=== PATIENT | female | born 1995 | race African-American/Black ===

== ENCOUNTER 2017-11-04 03:40 | Emergency (ER) | payer OTHER ==
[~2017-11-04] VITALS: Ht 165.1 cm; Wt 61.0 kg
[~2017-11-04 03:40] MED LIST: AMOX500C2 PO; HYDR-762 PO; IBUP-1542 PO; NITR-58 PO; ONDA4TAB8 PO; OXYC-281 PO; PROM25TA14 PO; UDROBDM PO
[2017-11-04 03:42] VITALS: Ht 165.1 cm; Wt 61.0 kg
[2017-11-04] MEDS ORDERED: HYDROmorphONE 1 MG/ML SYG IV STA (04:01)
[2017-11-04] MEDS ORDERED: SOD CHLORIDE 0.9% 1,000 ML IV STA (04:01)
[2017-11-04 04:28] LABS: BASOPHILS % 0.1 % (0.0-2.0); EOSINOPHILS % 0.3 % (0.0-7.0); HEMATOCRIT 33.5 % (37.0-47.0); HEMOGLOBIN 10.7 g/dl (12.0-16.0); LYMPHOCYTES # 2.1 10^3/ul (0.8-2.9); LYMPHOCYTES % 14.4 % (15.0-51.0); MEAN CORPUSCULAR HEMOGLOBIN 25.1 pg (29.0-33.0); MEAN CORPUSCULAR HGB CONC 31.9 g/dl (32.0-37.0); MEAN CORPUSCULAR VOLUME 78.5 fl (82.0-101.0); MONOCYTES % 7.1 % (0.0-11.0); NEUTROPHILS % 77.5 % (39.0-77.0); PLATELET COUNT 214 10^3/UL (140-415); RED BLOOD COUNT 4.27 10^6/ul (4.20-5.40); WHITE BLOOD COUNT 14.2 10^3/ul (4.8-10.8)
[2017-11-04 04:38] LABS: ADD UMIC NO; UR ASCORBIC ACID NEGATIVE (NEGATIVE); UR BILIRUBIN (Dip) NEGATIVE (NEGATIVE); UR BLOOD (Dip) NEGATIVE (NEGATIVE); UR CLARITY SLIGHTLY CLOUDY (CLEAR); UR COLOR STRAW (YELLOW); UR GLUCOSE (Dip) NEGATIVE (NEGATIVE); UR KETONES (Dip) NEGATIVE (NEGATIVE); UR LEUKOCYTE ESTERASE (Dip) NEGATIVE Leu/ul (NEGATIVE); UR NITRITE (Dip) NEGATIVE (NEGATIVE); UR RBC 0 /HPF (0-5); UR SPECIFIC GRAVITY (Dip) 1.004 (1.003-1.030); UR SQUAMOUS EPITHELIAL CELL MANY /HPF (FEW); UR TOTAL PROTEIN (Dip) NEGATIVE (NEGATIVE); UR UROBILINOGEN (Dip) NEGATIVE (NEGATIVE)
--- NOTE | 2017-11-04 04:45 | ERD ---
ER Documentation Chief Complaint Chief Complaint BIBRA 881 c/o abd pain. States had ectopic surgery done @ [facility] on 11/02 HPI 22-year-old female Ab2 brought in by ambulance for severe abdominal pain. Patient states that her last period was about 4 weeks ago. Yesterday she started having left lower quadrant abdominal pain. She went to [facility] where she had an ultrasound done that showed a possible ectopic with no intrauterine . She had a diagnostic laparoscopy done that did not show any evidence of ectopic. She was discharged home with follow-up instructions. She was doing well after discharge, then started having lower severe progressive abdominal pain without associated symptoms. Denies vaginal bleeding or discharge. ROS All systems reviewed and are negative except as per history of present illness. Medications Home Meds Active Scripts Polyethylene Glycol* (Miralax*) 17 Gm Powd.pack, 17 GM PO DAILY, #7 Prov:SHREYA SHIELDS MD 11/04/17 Hydrocodone/Acetaminophen (Buckner 5-325 Tablet) 1 Each Tablet, 1 TAB PO Q6H Y for PAIN, #7 TAB Prov:SHREYA SHIELDS MD 11/04/17 Nitrofurantoin Monohyd Macrocr* (Macrobid*) 100 Mg Capsr, 100 MG PO BID for 7 Days, CAP Prov:FELISHA HEDRICK PA-C 04/30/16 Guaifenesin-Dextromethorphan* (Robitussin* DM) 100MG/10MG/5ML Syrup, 10 ML PO Q6H Y for COUGH for 5 Days, ML Prov:SANDY FOOTE PA-C 04/16/16 Ibuprofen* (Motrin*) 600 Mg Tab, 600 MG PO Q6, #20 TAB Prov:SANDY FOOTE PA-C 04/16/16 Amoxicillin* (Amoxicillin*) 500 Mg Cap, 500 MG PO TID for 10 Days, CAP Prov:SANDY FOOTE PA-C 04/16/16 Promethazine Hcl* (Phenergan*) 25 Mg Tablet, 25 MG PO Q6 Y for NAUSEA AND/OR VOMITING, #10 TAB Prov:ANNA SCHAEFER MD 02/08/16 Hydrocodone Bit-Acetaminophen* (Buckner*) 10-325 Mg Tablet, 1 TAB PO Q8 Y for PAIN , #10 TAB Prov:ANNA SCHAEFER MD 02/08/16 Ondansetron Hcl* (Zofran*) 4 Mg Tablet, 4 MG PO Q6H for NAUSEA AND/OR VOMITING, #30 TAB Prov:IVAN GARCÍA MD 07/18/15 Oxycodone Hcl-Acetaminophen* (Percocet*) 5-325 Mg Tablet, 1 TAB PO Q4H Y for PAIN LEVEL 6-10, #12 TAB Prov:IVAN GARCÍA MD 07/18/15 Allergies Allergies: Coded Allergies: No Known Allergy (Verified , 06/12/15) PMhx/Soc History of Surgery: Yes (LAPROSCOPIC ECTOPIC?) Anesthesia Reaction: No Hx Neurological Disorder: No Hx Respiratory Disorders: No Hx Cardiac Disorders: No Hx Psychiatric Problems: No Hx Miscellaneous Medical Probl: No Hx Alcohol Use: No Hx Substance Use: Yes (MARIJUANA) Hx Tobacco Use: Yes Smoking Status: Current every day smoker FmHx Family History: No diabetes Physical Exam Vitals Vital Signs Date Time Temp Pulse Resp B/P Pulse Ox O2 Delivery O2 Flow Rate FiO2 11/04/17 05:30 73 18 94/43 100 Room Air 11/04/17 03:42 97.8 114 24 143/79 97 Physical Exam Const: [] Head: Atraumatic Eyes: Normal Conjunctiva ENT: Normal External Ears, Nose and Mouth. Neck: Full range of motion..~ No meningismus. Resp: Clear to auscultation bilaterally Cardio: Regular rate and rhythm, no murmurs Abd: Soft, non tender, non distended. Normal bowel sounds Skin: No petechiae or rashes Back: No midline or flank tenderness Ext: No cyanosis, or edema Neur: Awake and alert Psych: Normal Mood and Affect Result Diagram: 11/04/1741111/04/17411 Results 24 hrs Laboratory Tests Test 11/04/17 04:12 White Blood Count 14.210^3/ul Red Blood Count 4.2710^6/ul Hemoglobin 10.7g/dl Hematocrit 33.5% Mean Corpuscular Volume 78.5fl Mean Corpuscular Hemoglobin 25.1pg Mean Corpuscular Hemoglobin Concent 31.9g/dl Red Cell Distribution Width 16.0% Platelet Count 90285^3/UL Mean Platelet Volume 11.0fl Neutrophils % 77.5% Lymphocytes % 14.4% Monocytes % 7.1% Eosinophils % 0.3% Basophils % 0.1% Nucleated Red Blood Cells % 0.0/100WBC Neutrophils # 11.010^3/ul Lymphocytes # 2.110^3/ul Monocytes # 1.010^3/ul Eosinophils # 0.010^3/ul Basophils # 0.010^3/ul Nucleated Red Blood Cells # 0.010^3/ul Urine Color STRAW Urine Clarity SLIGHTLY CLOUDY Urine pH 7.0 Urine Specific [place] 1.004 Urine Ketones NEGATIVEmg/dL Urine Nitrite NEGATIVEmg/dL Urine Bilirubin NEGATIVEmg/dL Urine Urobilinogen NEGATIVEmg/dL Urine Leukocyte Esterase NEGATIVELeu/ul Urine Microscopic RBC 0/HPF Urine Microscopic WBC 1/HPF Urine Squamous Epithelial Cells MANY/HPF Urine Hemoglobin NEGATIVEmg/dL Urine Glucose NEGATIVEmg/dL Urine Total Protein NEGATIVEmg/dl Sodium Level 139mmol/L Potassium Level 3.3mmol/L Chloride Level 103mmol/L Carbon Dioxide Level 25mmol/L Anion Gap 14 Blood Urea Nitrogen 7mg/dl Creatinine 0.80mg/dl Glucose Level 109mg/dl Calcium Level 9.3mg/dl Total Bilirubin 0.1mg/dl Direct Bilirubin 0.00mg/dl Indirect Bilirubin 0.1mg/dl Aspartate Amino Transf (AST/SGOT) 24IU/L Alanine Aminotransferase (ALT/SGPT) 31IU/L Alkaline Phosphatase 59IU/L Total Protein 6.9g/dl Albumin 4.0g/dl Globulin 2.90g/dl Albumin/Globulin Ratio 1.37 Beta HCG, Quantitative 2475.6mIU/ml Current Medications Medications (Trade) Dose Ordered Sig/Tian Route PRN Reason Start Time Stop Time Status Last Admin Dose Admin Sodium Chloride (NS) 1,000 ml @ 1,000 mls/hr Q1H STAT IV 11/04/17 04:01 11/04/17 05:00 DC 11/04/17 04:08 Hydromorphone HCl (Dilaudid) 1 mg ONCE STAT IV 11/04/17 04:01 11/04/17 04:03 DC 11/04/17 04:08 Procedures/MDM Labs: CBC: leukocytosis, mild anemia. BMP: mild hypokalemia B-Hc US Pelvic: FINDINGS: The uterus is visualized and measures 7.6 x 5.8 x 6.9 cm. There is a single intrauterine gestation. The mean sac diameter is 0.46 cm. This yields an estimated gestational age of 5 weeks and 0 days. The estimated date of delivery is July 07, 2018. There is no evidence for a yolk sac or pole. There is mild free fluid within the anterior cul-de-sac and left adnexal regions. The right ovary has a normal echotexture and measures 3.2 x 2.2 x 1.9 cm. The left ovary has a normal echotexture and measures 3.6 x 2.4 x 3.5 cm. There is a left corpus luteal cyst present measuring 2.5 x 2.0 x 2.4 cm with complex features and septations noted. There is normal flow to the ovaries bilaterally. No adnexal masses are noted. IMPRESSION: 1. Single early intrauterine gestation of approximately 5 weeks 0 days without evidence for a pole. Clinical correlation and follow-up ultrasound is indicated. 2. Left ovarian probable hemorrhagic corpus luteal cyst. 3. Mild pelvic and left adnexal free fluid. .Harmeet Mary MD, MD Date Time Electronically viewed and signed by .Harmeet Mary MD, MD on 11/04/2017 05:08 MDM: Patient presenting with abdominal pain and stable vitals. Doubt perforated viscus, acute appendicitis, diverticulitis or ureterolithiasis. No evidence of definite ectopic, ovarian torsion, or TOA. US shows hemorrhagic ovarian cyst on left with evidence of early IUP, reportedly not seen on US yesterday at outside hospital. She was treated with IV fluids and analgesics with improvement of symptoms. Spoke with Dr. [facility], who recommended followup for repeat hcg level in 4 days with repeat US in 1 week. Patient requesting , but I told her this cannot be done in ED. Outpatient resources discussed. OB referral given. Return precautions discussed and given Rx for Buckner. Departure Diagnosis: Primary Impression: Pelvic pain Additional Impressions: Early stage of Complex cyst of left ovary Condition: Stable SHREYA SHIELDS MD Nov 04, 2017 04:45
[2017-11-04 05:04] LABS: ALBUMIN/GLOBULIN RATIO 1.37; BILIRUBIN,INDIRECT 0.1 mg/dl (0-1.1); BILIRUBIN,TOTAL 0.1 mg/dl (0.2-1.3); CALCIUM 9.3 mg/dl (8.4-10.2); CREATININE 0.8 mg/dl (0.44-1.00); POTASSIUM 3.3 mmol/L (3.5-5.1); TOTAL PROTEIN 6.9 g/dl (6.1-8.1)
--- NOTE | 2017-11-04 05:08 | RADRPT ---
PROCEDURE: ULTRASOUND OBSTETRICAL CLINICAL INDICATION: 22-year-old female with pelvic pain. TECHNIQUE: Multiple sonographic images of the pelvis were obtained. The images were reviewed on a PACS workstation. COMPARISON: None. FINDINGS: The uterus is visualized and measures 7.6 x 5.8 x 6.9 cm. There is a single intrauterine gestation. The mean sac diameter is 0.46 cm. This yields an estimated gestational age of 5 weeks and 0 days. The estimated date of delivery is July 07, 2018. There is no evidence for a yolk sac or pole . There is mild free fluid within the anterior cul-de-sac and left adnexal regions. The right ovary has a normal echotexture and measures 3.2 x 2.2 x 1.9 cm. The left ovary has a normal echotexture an d measures 3.6 x 2.4 x 3.5 cm. There is a left corpus luteal cyst present measuring 2.5 x 2.0 x 2.4 cm with complex features and septations noted. There is normal flow to the ovaries bilaterally. No adnexal masses are noted. IMPRESSION: 1. Single early intrauterine gestation of approximately 5 weeks 0 days without evidence for a pole. Clinical correlation and follow-up ultrasound is indicated. 2. Left ovarian probable hemorrhagic corpus luteal cyst. 3. Mild pelvic and left adnexal free fluid. .Harmeet Mary MD, MD Date Time Electronically viewed and signed by .Harmeet Mayr MD, on 11/04/2017 05:08 .Niels/
[2017-11-04 05:30] VITALS: BP 94/43; PULSE 73; RESP 18
[2017-11-04] MEDS ORDERED: HYDR-906 PO (06:02)
[2017-11-04] MEDS ORDERED: POLY17PO6 PO (06:02)
== END 2017-11-04 06:36 | disposition home or self-care (01) ==
LOC: E/R 03:40
DX: O34.81 Maternal care for other abnormalities of pelvic organs, first trimester (principal); N83.202 Unspecified ovarian cyst, left side; O99.331 Smoking (tobacco) complicating pregnancy, first trimester; F17.210 Nicotine dependence, cigarettes, uncomplicated; R10.2 Pelvic and perineal pain; Z3A.01 Less than 8 weeks gestation of pregnancy
CPT/HCPCS: 36415; 76801; 76817; 80053; 81001; 81003; 84702; 85025; 86900; 86901; 96374; J1170; J7030; Z7502

== ENCOUNTER 2017-11-04 11:04 | Emergency (ER) | payer OTHER ==
[~2017-11-04] VITALS: Ht 157.5 cm; Wt 68.0 kg
[~2017-11-04 11:04] MED LIST changes: +HYDR-906 PO; +POLY17PO6 PO
[2017-11-04 11:07] VITALS: Ht 157.5 cm; Wt 68.0 kg
[2017-11-04] MEDS ORDERED: ONDANSETRON 4 MG INJ IV STA (12:06)
[2017-11-04] MEDS ORDERED: FAMOTIDINE 20 MG INJ IV STA (12:06)
[2017-11-04] MEDS ORDERED: HYDROmorphONE 1 MG/ML SYG IV STA (12:06)
--- NOTE | 2017-11-04 13:18 | ERD ---
ER Documentation Chief Complaint Chief Complaint Complains of abdominal pain x 3 days HPI 22-year-old female, Ab2, last menstrual period approximately 4 weeks ago with a history of chronic abdominal pain, hiatal hernia, now with a documented, viable 5 week intrauterine who is 2 days status post laparoscopic evaluation, ruled out for ectopic at [facility] presents to the ED complaining of severe, generalized abdominal pain. Nausea but no vomiting or diarrhea. Denies dysuria, polyuria or flank pain. No URI symptoms or cough. No chest pain, palpitations, leg pain or swelling. No relieving or exacerbating factors. No fevers or chills. ROS All systems reviewed and are negative except as per history of present illness. Medications Home Meds Active Scripts Polyethylene Glycol* (Miralax*) 17 Gm Powd.pack, 17 GM PO DAILY, #7 Prov:SHREYA SHIELDS MD 11/04/17 Hydrocodone/Acetaminophen ([place] 5-325 Tablet) 1 Each Tablet, 1 TAB PO Q6H Y for PAIN, #7 TAB Prov:SHREYA SHIELDS MD 11/04/17 Nitrofurantoin Monohyd Macrocr* (Macrobid*) 100 Mg Capsr, 100 MG PO BID for 7 Days, CAP Prov:FELISHA HEDRICK PA-C 04/30/16 Guaifenesin-Dextromethorphan* (Robitussin* DM) 100MG/10MG/5ML Syrup, 10 ML PO Q6H Y for COUGH for 5 Days, ML Prov:SANDY FOOTE PA-C 04/16/16 Ibuprofen* (Motrin*) 600 Mg Tab, 600 MG PO Q6, #20 TAB Prov:SANDY FOOTE PA-C 04/16/16 Amoxicillin* (Amoxicillin*) 500 Mg Cap, 500 MG PO TID for 10 Days, CAP Prov:SANDY FOOTE PA-C 04/16/16 Promethazine Hcl* (Phenergan*) 25 Mg Tablet, 25 MG PO Q6 Y for NAUSEA AND/OR VOMITING, #10 TAB Prov:ANNA SCHAEFER MD 02/08/16 Hydrocodone Bit-Acetaminophen* ([place]*) 10-325 Mg Tablet, 1 TAB PO Q8 Y for PAIN , #10 TAB Prov:ANNA SCHAEFER MD 02/08/16 Ondansetron Hcl* (Zofran*) 4 Mg Tablet, 4 MG PO Q6H for NAUSEA AND/OR VOMITING, #30 TAB Prov:IVAN GARCÍA MD 07/18/15 Oxycodone Hcl-Acetaminophen* (Percocet*) 5-325 Mg Tablet, 1 TAB PO Q4H Y for PAIN LEVEL 6-10, #12 TAB Prov:IVAN GARCÍA MD 07/18/15 Allergies Allergies: Coded Allergies: No Known Allergy (Verified , 06/12/15) PMhx/Soc reviewed in chart. As per HPI History of Surgery: Yes ("Fallopian tube sx") Anesthesia Reaction: No Hx Neurological Disorder: No Hx Respiratory Disorders: No Hx Cardiac Disorders: No Hx Psychiatric Problems: No Hx Miscellaneous Medical Probl: Yes (Per significant other: Cysts in uterus, Hiatal hernia) Hx Alcohol Use: No Hx Substance Use: No Hx Tobacco Use: Yes Smoking Status: Never smoker FmHx No family history relevant to presenting complaint Physical Exam Vitals Vital Signs Date Time Temp Pulse Resp B/P Pulse Ox O2 Delivery O2 Flow Rate FiO2 11/04/17 11:07 98.0 96 20 112/78 99 Physical Exam Const: Alert, moderate to severe distress due to pain Head: Atraumatic Eyes: Normal Conjunctiva ENT: Normal External Ears, Nose and Mouth. Neck: Full range of motion. No meningismus. Resp: Clear to auscultation bilaterally Cardio: Regular rate and rhythm, no murmurs Abd: Soft, non tender, non distended. Normal bowel sounds Skin: No petechiae or rashes Back: No midline or flank tenderness Ext: No cyanosis, or edema Neur: Awake and alert Psych: Normal Mood and Affect Results 24 hrs Current Medications Medications (Trade) Dose Ordered Sig/Tian Route PRN Reason Start Time Stop Time Status Last Admin Dose Admin Hydromorphone HCl (Dilaudid) 1 mg ONCE STAT IV 11/04/17 12:06 11/04/17 12:09 DC 11/04/17 12:14 Ondansetron HCl (Zofran Inj) 4 mg ONCE STAT IV 11/04/17 12:06 11/04/17 12:09 DC 11/04/17 12:14 Famotidine (Pepcid Iv) 20 mg ONCE STAT IV 11/04/17 12:06 11/04/17 12:09 DC 11/04/17 12:14 Procedures/MDM DOCUMENTS REVIEWED: ED nurse, prior ED, prior records. Extensive h/o chronic pain, opioid dependence and drug seeking behavior. ED COURSE: Dilaudid 1 mg, Zofran 4 mg IV REEXAMINATION/REEVALUATION: Time:13:15. Well. Pain resolved. MEDICAL DECISION MAKIN-year-old female with a history of chronic abdominal pain, hiatal hernia, now with a documented, viable 5 week intrauterine who is status post laparoscopic evaluation to rule out ectopic 2 days ago at [facility] presents to the ED complaining of severe, generalized abdominal pain. No relieving or exacerbating factors. She is pending termination of tomorrow morning. Pain relieved with intravenous hydration, analgesics and antiemetics. During the patient's recent , extensive workup is no evidence of acute intra-abdominal process including but not limited to perforated viscus, appendicitis, diverticulitis, cholecystitis or bowel obstruction. Abdominal exam reveals no evidence of rebound, guarding or signs of acute peritonitis. Medical records reviewed and patient has a long history of chronic pain and opioid dependence. She recently received prescription for Percocet and Helena. Despite her insistence, it would be inappropriate to prescribe more opiates. Stable for discharge of precautionary instructions and outpatient follow-up as counseled. Referral to pain management advised. Counseled patient and family regarding diagnostic workup, diagnosis and need for followup. Understands to return to ED if symptoms recur, worsen or any other concerns. Departure Diagnosis: Primary Impression: Acute abdominal pain Additional Impressions: Chronic pain Chronic pain type: other chronic pain Qualified Code: G89.29 - Other chronic pain Weeks of gestation: less than 8 weeks Qualified Code: Z3A.01 - Less than 8 weeks gestation of Condition: Stable AUGUSTUS JAFFE MD Nov 04, 2017 13:18
== END 2017-11-04 16:04 | disposition home or self-care (01) ==
LOC: FTE 11:04 → E/R 16:04
DX: O26.891 Other specified pregnancy related conditions, first trimester (principal); G89.29 Other chronic pain; R10.84 Generalized abdominal pain; Z3A.01 Less than 8 weeks gestation of pregnancy
CPT/HCPCS: 96374; 96375; J1170; J2405; Z7502; Z7610

== ENCOUNTER 2018-03-08 15:54 | Emergency (ER) | END 2018-03-08 16:33 | disposition home or self-care (01) ==